=== PATIENT | male | born 1995 | race Caucasian/White ===

== ENCOUNTER 2019-11-01 18:24 | Emergency (ER) | payer OTHER ==
[~2019-11-01] VITALS: Ht 177.8 cm; Wt 70.3 kg
[2019-11-01 18:32] VITALS: BP 142/87
[2019-11-01] MEDS ORDERED: IBUPROFEN 600 MG TABLET PO ONE (18:47)
[2019-11-01] MEDS: IBUPROFEN 600 MG TABLET PO ONE (19:11)
--- NOTE | 2019-11-01 20:40 | NUR ---
Patient discharged to home in stable condition. Written and verbal after care instructions given. Patient verbalizes understanding of instruction.
--- NOTE | 2019-11-03 00:16 | NUR ---
PER LAB, PATIENT IS COVID NEGATIVE
== END 2019-11-01 20:41 | disposition home or self-care (01) ==
LOC: ER 18:28
DX: J02.9 Acute pharyngitis, unspecified (principal); Z20.828 Contact with and (suspected) exposure to other viral communicable diseases
CPT/HCPCS: 87070; 87880; 99283; C9803; U0003; 86403-TC